=== PATIENT | female | born 1985 | race Caucasian/White ===

== ENCOUNTER → 2018-03-18 10:31 | Outpatient (CLI) | payer OTHER, MEDICAID, SELFPAY | PROVIDERS: Family Provider Family Medicine; PCP Family Medicine; Visit Provider Physician Assistant | DX: J02.9 Acute pharyngitis, unspecified (principal) | CPT/HCPCS: 87070 ==

== ENCOUNTER → 2019-06-24 09:39 | Outpatient (CLI) | payer OTHER, MEDICAID, SELFPAY ==
[2019-06-24 11:13] LABS: Appearance Urine UA CLEAR; Bilirubin Urine UA NEGATIVE (NEGATIVE); Color Urine UA YELLOW; Glucose Urine UA NEGATIVE (Negative); Ketones Urine UA NEGATIVE (NEGATIVE); Leukocyte Esterase Urine UA 3+ (NEGATIVE); Nitrite Urine UA NEGATIVE (Negative); Occult Blood Urine UA 1+ (Negative); Protein Urine UA NEGATIVE (Negative); Urobilinogen Urine UA 0.2 E.U./dL (0.2); pH Urine UA 6.5 (4.5-8.0)
[2019-06-24 11:32] LABS: Bacteria Urine Many (>30); RBC Urine 10-30/HPF (0-5/HPF); Squamous Epithelial Cell Urine 1-5 /HPF (0-5/HPF); WBC Urine 10-30/HPF (0-5/HPF)
[2019-06-24 11:33] LABS: Culture Indicated Urine Specimen Cultured
== END ==
PROVIDERS: Family Provider Family Medicine; PCP Family Medicine; Referring Provider Family Medicine; Visit Provider Family Medicine
DX: R30.0 Dysuria (principal)
CPT/HCPCS: 81001; 87077; 87086; 87186

== ENCOUNTER → 2019-08-07 11:20 | Outpatient (CLI) | payer OTHER, MEDICAID, SELFPAY ==
[2019-08-07 12:58] LABS: Appearance Urine UA CLEAR; Bilirubin Urine UA NEGATIVE (NEGATIVE); Color Urine UA YELLOW; Glucose Urine UA TRACE g/dL (Negative); Ketones Urine UA NEGATIVE (NEGATIVE); Leukocyte Esterase Urine UA 3+ (NEGATIVE); Nitrite Urine UA POSITIVE (Negative); Occult Blood Urine UA 1+ (Negative); Protein Urine UA TRACE (Negative); Specific Gravity Urine UA 1.015 (1.000-1.035); Urobilinogen Urine UA 0.2 E.U./dL (0.2)
[2019-08-07 13:03] LABS: pH Urine UA 6.5 (4.5-8.0)
[2019-08-07 13:20] LABS: Bacteria Urine Many (>30); RBC Urine 1-5/HPF (0-5/HPF); Squamous Epithelial Cell Urine 1-5 /HPF (0-5/HPF); WBC Urine 10-30/HPF (0-5/HPF)
[2019-08-07 13:21] LABS: Culture Indicated Urine Specimen Cultured
== END ==
PROVIDERS: Family Medicine; Family Provider Family Medicine; PCP Family Medicine; Referring Provider Family Medicine; Visit Provider Family Medicine
DX: R30.0 Dysuria (principal); R35.0 Frequency of micturition; R39.15 Urgency of urination
CPT/HCPCS: 81001; 87077; 87086; 87186

== ENCOUNTER → 2020-01-08 13:45 | Outpatient (CLI) | payer OTHER, MEDICAID, SELFPAY ==
[2020-01-10 00:59] LABS: COVID19 Sendout Not Detected (Not Detect)
== END ==
PROVIDERS: Family Provider Family Medicine; PCP Family Medicine; Visit Provider Physician Assistant
DX: Z11.59 Encounter for screening for other viral diseases (principal)
CPT/HCPCS: 87635

== ENCOUNTER 2020-02-10 07:58 | Emergency (ER) | payer OTHER, MEDICAID, SELFPAY ==
[2020-02-10 08:07] VITALS: BP 143/90; PULSE 87; RESP 16; TEMP 36.3; O2SAT 100; BMI 24.2
--- NOTE | 2020-02-10 08:24 | ED.NECK ---
HPI - Neck Pain/Injury General Chief Complaint: Neck Pain/Injury Stated Complaint: really bad neck and back pain with right arm pain Time Seen by Provider: 02/10/20 08:11 Source: patient Mode of arrival: Ambulatory Limitations: no limitations History of Present Illness HPI Narrative: The patient arrives with right neck pain. She is a hairstylist. She noticed slight discomfort during work history. She took ibuprofen yesterday. This morning, she woke with increased right neck pain. She has pain with motion to her head. She is achiness with motion using her right arm. She has no focal numbness or weakness. She denies chronic neck problems. She is right-hand dominant. She is uncertain about a potential injury at work. She denies recurrent neck problems. She denies recent illness. She denies possible . Related Data Home Medications Medication Instructions Recorded Confirmed cholecalciferol (vitamin D3) 2 tab PO QDAY #0 11/21/15 02/01/20 [Vitamin D3] Previous Rx's Medication Instructions Recorded levothyroxine 100 mcg tablet 100 mcg PO DAILY #90 tab 12/24/19 norgestimate-ethinyl estradiol See Rx Instructions .ROUTE 12/28/19 0.18 mg/0.215mg/0.25mg-35 .COMPLEX #84 tablet mcg(28)tablet nitrofurantoin macrocrystal 100 mg 100 mg PO BID #10 cap 02/01/20 capsule phenazopyridine 100 mg tablet 100 mg PO TID PRN #6 tab 02/01/20 diazepam [Valium] 5 mg PO TID PRN #10 tab 02/10/20 Allergies Allergy/AdvReac Type Severity Reaction Status Date / Time No Known Allergies Allergy Uncoded 02/10/20 08:10 Review of Systems Constitutional Constitutional: Denies weakness Comments: No recent illness. ENT Ears, Nose, Mouth, and Throat: Denies dizziness Comments: No ENT complaints. Cardiovascular Cardiovascular: Denies dyspnea Respiratory Respiratory: Denies dyspnea Musculoskeletal Musculoskeletal: Denies numbness Comments: Neck pain is noted HPI. No focal numbness or weakness down the extremities. Neurologic Neurologic: Denies dizziness, Denies numbness and Denies weakness Patient History Medical History (Updated 02/10/20 @ 09:12 by Irwin Harrison MD) Acquired hypothyroidism Hyperlipidemia Social History marital status: unmarried,living together household members: significant other Smoking Status: Current every day smoker alcohol intake: current (ON OCCASION) substance use type: does not use Smoking Status: Current every day smoker Substance Use Type: does not use Exam Initial Vital Signs Initial Vital Signs: Vital Signs Temperature 97.3 F L 02/10/20 08:07 Pulse Rate 87 02/10/20 08:07 Respiratory Rate 16 02/10/20 08:07 Blood Pressure 143/90 H 02/10/20 08:07 Pulse Oximetry 100 02/10/20 08:07 Const General: cooperative and well developed Nutritional Appearance: well nourished [facility] Head: normal to inspection, normocephalic and atraumatic Eyes Pupils: PERRL EOM: EOM intact bilaterally Neck Other: No palpable tenderness over the cervical spine. Right paraspinal tenderness extending into the right supraspinatus muscle. Increased pain with abduction or extension of the right arm. Skin General: no rashes or lesions noted Neuro General: patient alert, patient oriented x3 and other (Motor and sensory exam of the upper extremities is intact.) Speech: speech normal Extrem Other: Normal range of motion upper extremities without focal numbness or weakness. Course Course Course Narrative: The patient has been treated with Toradol 60 mg IM as well as Valium 5 mg p.o.. She showing improvement at time of discharge. She will be treated with ibuprofen and Valium, ice packs to the neck are also recommended. Orders Ordered: Discontinued Medications Diazepam (Diazepam 5 Mg Tablet) 5 mg PO NOW ONE Stop: 02/10/20 08:25 Last Admin: 02/10/20 08:31 Dose: 5 mg Documented by: RASHIDA Ketorolac Tromethamine (Ketorolac 60 Mg/2 Ml Vial) 60 mg IM NOW ONE Stop: 02/10/20 08:25 Last Admin: 02/10/20 08:31 Dose: 60 mg Documented by: RASHIDA Vital Signs Vital signs: Vital Signs - 8 hr 02/10/20 09:22 Pulse Rate 73 Respiratory Rate 18 Blood Pressure 132/84 Pulse Oximetry 98 Discharge Plan Departure Patient Disposition: Home Clinical Impression: Strain of muscle, fascia and tendon at neck level, initial encounter Instructions: Neck Sprain Activity Restrictions/Additional Instructions: Ibuprofen 600 mg every 6 hours as needed for pain. Valium every 6-8 hours as needed for spasm. Apply ice packs to the neck frequently for the next 2 days. After 2 days converted heat packs as needed for discomfort. Recheck with your doctor in 3 days if not improved. Return to the ER if problems escalate. Prescriptions: New diazepam [Valium] 5 mg tablet 5 mg PO TID PRN (Reason: muscle spasm) Qty: 10 RF: 0 No Action norgestimate-ethinyl estradiol 0.18/0.215/0.25 mg-35 mcg (28) tablet See Rx Instructions .ROUTE .COMPLEX Qty: 84 RF: 3 nitrofurantoin macrocrystal 100 mg capsule 100 mg PO BID Qty: 10 RF: 1 phenazopyridine [Pyridium] 100 mg tablet 100 mg PO TID PRN (Reason: pain) Qty: 6 RF: 0 cholecalciferol (vitamin D3) [Vitamin D3] 2,000 UNIT tablet 2 tab PO QDAY Qty: 0 RF: 0 levothyroxine 100 mcg tablet 100 mcg PO DAILY Qty: 90 RF: 3 Referrals: Julio Schultz MD [Primary Care Provider] -
--- NOTE | 2020-02-10 08:25 | PC.NURSE ---
Report right sided neck pain radiating into right arm. No injury or trauma.
[2020-02-10] MEDS: KETOROLAC 60 MG/2 ML VIAL IM (08:31)
[2020-02-10] MEDS: diazePAM 5 MG TABLET PO (08:31)
[2020-02-10 09:22] VITALS: BP 132/84; PULSE 73; RESP 18; O2SAT 98
== END 2020-02-10 09:22 | disposition home or self-care (01) ==
PROVIDERS: Emergency Provider Emergency Medicine; Family Provider Family Medicine; PCP Family Medicine
DX: S16.1XXA Strain of muscle, fascia and tendon at neck level, initial encounter (principal)
CPT/HCPCS: 96372; 99281; 99283; J1885

== ENCOUNTER → 2021-03-22 12:06 | Outpatient (CLI) | payer OTHER, MEDICAID, SELFPAY ==
[2021-03-22 13:35] LABS: COVID19 -Nasal RAPID Negative (Negative)
== END ==
PROVIDERS: Family Provider Family Medicine; PCP Family Medicine; Referring Provider Physician Assistant; Visit Provider Physician Assistant
DX: Z20.822 Contact with and (suspected) exposure to COVID-19; R51.9 Headache, unspecified
CPT/HCPCS: 87635

== ENCOUNTER 2021-03-25 12:24 | Emergency (ER) | payer OTHER, MEDICAID, SELFPAY ==
[2021-03-25 12:37] VITALS: BP 165/104; PULSE 99; RESP 14; TEMP 36.2; O2SAT 100; BMI 25.8
[2021-03-25 13:24] LABS: COVID19 -Nasal RAPID Negative (Negative)
[2021-03-25 14:09] VITALS: BP 153/95; PULSE 92; RESP 17; O2SAT 99
--- NOTE | 2021-03-25 14:42 | ED.HA ---
HPI - Headache <Glen Sutherland PA-C - Last Filed: 03/25/21 16:37> General Chief Complaint: Headache Stated Complaint: HEADACHE/NECK PAIN x10 DAYS Time Seen by Provider: 03/25/21 14:26 Mode of arrival: Ambulatory History of Present Illness HPI Narrative: Patient is a 35-year-old female presenting to the emergency department today for an evaluation of a headache that began approximately 10 days ago. Patient states that she has also experienced right-sided neck pain and right eye with mild blurry vision. Patient states that she has taken Tylenol, ibuprofen, Toradol, Excedrin, and an unspecified muscle relaxer to help alleviate her pain. She explains that she has been able to alleviate her symptoms intermittently, but she notes that the pain returns shortly after. She denies fever, chills, chest pain, cough, shortness of breath, nausea, vomiting, diarrhea, dysuria, hematuria, abdominal pain, sore throat, or any other concerning symptoms. No further concerns reports that this time. Related Data Home Medications Medication Instructions Recorded Confirmed cholecalciferol (vitamin D3) 50 2 tab PO QDAY #0 11/21/15 03/22/21 mcg (2,000 unit) tablet (Vitamin D3) Previous Rx's Medication Instructions Recorded phenazopyridine 100 mg tablet 100 mg PO TID PRN #6 tab 02/01/20 (Pyridium) levothyroxine 100 mcg tablet 100 mcg PO DAILY #90 tab 09/22/20 norgestimate-ethinyl estradiol See Rx Instructions .ROUTE 09/22/20 0.18 mg/0.215mg/0.25mg-35 .COMPLEX #84 tablet mcg(28)tablet cyclobenzaprine 10 mg tablet 10 mg PO BEDTIME PRN #5 tab 03/20/21 ketorolac 10 mg tablet 10 mg PO BEDTIME PRN 5 Days #5 tab 03/22/21 baclofen 10 mg tablet 10 mg PO BID #20 tab 03/25/21 Allergies Allergy/AdvReac Type Severity Reaction Status Date / Time No Known Drug Allergies Allergy Verified 03/25/21 12:41 Review of Systems <Glen Sutherland PA-C - Last Filed: 03/25/21 16:37> Constitutional Constitutional: Denies chills, Denies fatigue, Denies fever(s), Denies frequent falls, Reports headache(s), Denies lethargy and Denies weakness Eyes Eyes: Denies loss of vision ENT Ears, Nose, Mouth, and Throat: Denies change in voice, Denies dizziness, Reports headache(s), Reports neck pain, Denies sore throat and Denies throat swelling Cardiovascular Cardiovascular: Denies chest pain, Denies irregular heart rhythm, Denies lightheadedness, Denies palpitations, Denies dyspnea, Denies dyspnea on exertion and Denies orthopnea Respiratory Respiratory: Denies cough, Denies dyspnea, Denies dyspnea on exertion and Denies wheezing Gastrointestinal Gastrointestinal: Denies abdominal pain, Denies change in bowel habits, Denies diarrhea, Denies nausea and Denies vomiting Genitourinary Genitourinary: Denies hematuria, Denies flank pain, Denies urinary incontinence and Denies urinary urgency Musculoskeletal Musculoskeletal: Denies back pain, Denies muscle weakness, Reports neck pain, Denies numbness and Denies tingling Integumentary/Breasts Skin/Breast: Denies pruritus, Denies erythema, Denies rash and Denies wounds Neurologic Neurologic: Denies behavioral changes, Denies confusion, Denies dizziness, Denies frequent falls, Reports headache(s), Denies loss of vision, Denies numbness, Denies tingling and Denies weakness Psychiatric Psychiatric: Denies behavioral changes and Denies confusion Endocrine Endocrine: Denies fatigue and Denies palpitations Allergic/Immunologic Allergic/Immunologic: Denies throat swelling and Denies wheezing Patient History <Glen Sutherland PA-C - Last Filed: 03/25/21 16:37> Medical History Acquired hypothyroidism Hyperlipidemia Social History marital status: unmarried,living together household members: significant other Smoking Status: Current every day smoker alcohol intake: current substance use type: does not use Smoking Status: Current every day smoker alcohol intake frequency: 0-2 drinks per day Substance Use Type: does not use Exam <Glen Sutherland PA-C - Last Filed: 03/25/21 16:37> Narrative Exam Narrative: GENERAL: 35 year old patient appears stated age. Well-developed patient, in no acute distress. HEAD: Atraumatic. Normocephalic. EYES: Pupils equal round and reactive. Extraocular motions intact. No scleral icterus. No injection or drainage. ENT: Nose without bleeding, purulent drainage. Throat without erythema, tonsillar hypertrophy or exudate. Airway patent. NECK: Trachea midline. Non tender CARDIOVASCULAR: Regular rate and rhythm without murmurs, gallops, or rubs. RESPIRATORY: Clear to auscultation. Breath sounds equal bilaterally. No wheezes, rales, or rhonchi. GASTROINTESTINAL: Abdomen soft, non-tender, nondistended. EXTREMITIES: No edema or joint tenderness. MUSCULOSKELETAL: Mild tenderness to palpation noted over the right sternocleidomastoid muscle. BACK: Nontender without deformity or crepitance. No flank tenderness. NEURO: AOx3. SKIN: No rash or erythema of visible areas Initial Vital Signs Initial Vital Signs: Vital Signs Temperature 97.2 F L 03/25/21 12:37 Pulse Rate 99 H 03/25/21 12:37 Respiratory Rate 14 03/25/21 12:37 Blood Pressure 165/104 H 03/25/21 12:37 Pulse Oximetry 100 03/25/21 12:37 <Rober Seals DO - Last Filed: 03/25/21 17:08> Initial Vital Signs Initial Vital Signs: Vital Signs Temperature 97.2 F L 03/25/21 12:37 Pulse Rate 99 H 03/25/21 12:37 Respiratory Rate 14 03/25/21 12:37 Blood Pressure 165/104 H 03/25/21 12:37 Pulse Oximetry 100 03/25/21 12:37 Course <Glen Sutherland PA-C - Last Filed: 03/25/21 16:37> Course Course Narrative: Diazepam, baclofen, and intramuscular Toradol administered. Patient states that she is feeling much better after medications were administered. Orders Ordered: ED Orders 03/25/21 13:01 COVID19 -Nasal swab/Pre-Proc Stat Discontinued Medications Baclofen (Baclofen 10 Mg Tablet) 10 mg PO NOW ONE Stop: 03/25/21 14:42 Last Admin: 03/25/21 14:59 Dose: 10 mg Documented by: LAYTON Diazepam (Diazepam 5 Mg Tablet) 5 mg PO NOW ONE Stop: 03/25/21 14:42 Last Admin: 03/25/21 14:59 Dose: 5 mg Documented by: LAYTON Ketorolac Tromethamine (Ketorolac 30 Mg/Ml Vial) 15 mg IM NOW ONE Stop: 03/25/21 14:42 Last Admin: 03/25/21 14:59 Dose: 15 mg Documented by: LAYTON Vital Signs Vital signs: Vital Signs - 8 hr 03/25/21 12:37 03/25/21 14:09 03/25/21 14:53 Temperature 97.2 F L Pulse Rate 99 H 92 H 90 Respiratory Rate 14 17 18 Blood Pressure 165/104 H 153/95 H 137/88 Pulse Oximetry 100 99 100 <Rober Seals DO - Last Filed: 03/25/21 17:08> Orders Ordered: ED Orders 03/25/21 13:01 COVID19 -Nasal swab/Pre-Proc Stat Discontinued Medications Baclofen (Baclofen 10 Mg Tablet) 10 mg PO NOW ONE Stop: 03/25/21 14:42 Last Admin: 03/25/21 14:59 Dose: 10 mg Documented by: LAYTON Diazepam (Diazepam 5 Mg Tablet) 5 mg PO NOW ONE Stop: 03/25/21 14:42 Last Admin: 03/25/21 14:59 Dose: 5 mg Documented by: LAYTON Ketorolac Tromethamine (Ketorolac 30 Mg/Ml Vial) 15 mg IM NOW ONE Stop: 03/25/21 14:42 Last Admin: 03/25/21 14:59 Dose: 15 mg Documented by: LAYTON Vital Signs Vital signs: Vital Signs - 8 hr 03/25/21 12:37 03/25/21 14:09 03/25/21 14:53 Temperature 97.2 F L Pulse Rate 99 H 92 H 90 Respiratory Rate 14 17 18 Blood Pressure 165/104 H 153/95 H 137/88 Pulse Oximetry 100 99 100 MDM - Headache <Glen Sutherland PA-C - Last Filed: 03/25/21 16:37> Lab Data Labs: Lab Results 03/25/21 Range/Units 13:01 SARS-CoV-2 (PCR) Negative (Negative) MDM Narrative Medical decision making narrative: To consider migraine versus tension headache versus cluster headache versus meningitis versus viral upper respiratory infection versus COVID-19. Overall physical examination and history are reassuring. Discussed with patient the likelihood that the pain she is experiencing is associated with a muscle strain. I recommended the patient discontinue her muscle relaxer that was originally prescribed to her and to begin taking back within which I am prescribing to her today. Patient expresses understanding and agrees to plan. Additionally, I urged the patient to follow back up with her primary care provider within the next 2-3 days if her pain returns. Strict return precautions were discussed with the patient prior to discharge. At this time patient is comfortable being discharged home and is stable for discharge. <Rober Seals, DO - Last Filed: 03/25/21 17:08> Lab Data Labs: Lab Results 03/25/21 Range/Units 13:01 SARS-CoV-2 (PCR) Negative (Negative) Discharge Plan Departure Patient Disposition: Home Clinical Impression: Headache, Neck pain Instructions: DI for Headache Activity Restrictions/Additional Instructions: *You have been diagnosed with headache, neck pain *What to do: *Please continue to take your regular medications as directed. [X] New medication prescriptions sent to your pharmacy: [facility] - Baclofen [ ] New medication written as a paper prescription [ ] No new medications given *Please follow up with your primary care provider in 2-3 days, call for an appointment. Let them know you were seen in the Emergency Department and that we ask that you be seen in follow up. We will electronically transmit a record of today's note if your PCP is in our system *If you do not have a primary care provider please contact the [facility] Resource line at [phone]. They will ask some questions about your medical history and help get you set up with a doctor in the community. *Return to Emergency Department if you should have any new, worsening or concerning symptoms, such as fever greater than 101 F, shaking chills, worsening pain, persistent vomiting or other bothersome symptoms Prescriptions: New baclofen 10 mg tablet 10 mg PO BID Qty: 20 0RF No Action ketorolac 10 mg tablet 10 mg PO BEDTIME PRN (Reason: pain) 5 Days Qty: 5 1RF phenazopyridine [Pyridium] 100 mg tablet 100 mg PO TID PRN (Reason: pain) Qty: 6 0RF cholecalciferol (vitamin D3) [Vitamin D3] 2,000 UNIT tablet 2 tab PO QDAY Qty: 0 0RF levothyroxine 100 mcg tablet 100 mcg PO DAILY Qty: 90 3RF norgestimate-ethinyl estradiol 0.18/0.215/0.25 mg-35 mcg (28) tablet See Rx Instructions .ROUTE .COMPLEX Qty: 84 3RF Dose Instruction: take 1 tablet by mouth once daily Rx Instructions: take 1 tablet by mouth once daily cyclobenzaprine 10 mg tablet 10 mg PO BEDTIME PRN (Reason: muscle spasm) Qty: 5 0RF Referrals: Julio Schultz MD [Primary Care Provider] - <Rober Seals, - Last Filed: 03/25/21 17:08> Cosign ED Attending Cosignature Attestation: Dr Seals Co-Sign Statement: I was available for consultation during this patient's emergency department visit. This chart is signed by myself for administrative purposes only. I did not have direct contact with this patient during this visit. They were seen independently by the APC.
[2021-03-25 14:53] VITALS: BP 137/88; PULSE 90; RESP 18; O2SAT 100
[2021-03-25] MEDS: diazePAM 5 MG TABLET PO (14:59)
[2021-03-25] MEDS: KETOROLAC 30 MG/ML VIAL 15 MG IM (14:59)
[2021-03-25] MEDS: BACLOFEN 10 MG TABLET PO (14:59)
== END 2021-03-25 15:55 | disposition home or self-care (01) ==
PROVIDERS: Emergency Medicine; Emergency Provider Physician Assistant; Family Provider Family Medicine; PCP Family Medicine
DX: R51.9 Headache, unspecified (principal); M54.2 Cervicalgia; Z20.822 Contact with and (suspected) exposure to COVID-19
CPT/HCPCS: 87635; 96372; 99283; C9803; J1885

== ENCOUNTER → 2021-04-18 09:08 | Outpatient (CLI) | payer OTHER, MEDICAID, SELFPAY ==
--- NOTE | 2021-04-18 09:10 | DI.CT.S_ITS ---
PROCEDURE: CT head without contrast, CT angiogram head with contrast, CT venogram head with contrast INDICATIONS: 35-year-old female with headache on control TECHNIQUE: Precontrast 4.5 mm thick angled axial sections acquired from the foramen magnum to the vertex. After the administration of intravenous contrast, 1 mm thick sections acquired through the [place]. Postcontrast 4.5 mm thick sections then re-acquired from the foramen magnum to the vertex. 10 mm thick daybqoc-sqhhyclvw-[id number] (MIP) reformats were acquired of the central intracranial vasculature. For radiation dose reduction, the following was used: automated exposure control, adjustment of mA and/or kV according to patient size. COMPARISON: None. FINDINGS: Image quality: Excellent. Anterior circulation: Intracranial internal carotid arteries are normal in size and flow. The flow within the paired anterior cerebral arteries is normal and symmetric. The flow within the middle cerebral arteries is normal and symmetric. The anterior communicating artery is seen. No aneurysms are seen. Posterior circulation: The left vertebral artery is unremarkable and dominant. The distal right [place] V3 vertebral artery segment is partially included on the exam, not well seen and may be stenotic or occluded. The intradural V4 vertebral artery is patent, and could be related to retrograde flow from the basilar artery. Flow within the posterior cerebral arteries is normal and symmetric. No aneurysms are seen. Dural sinuses: Intracranial dural sinuses are patent and unremarkable. CSF spaces: Ventricles are normal in size and shape. Basal cisterns are patent. No extra-axial fluid collections. Brain: No midline shift. No intracranial bleeds or masses. Chacko-white matter interface appears intact. Skull and face: Calvarium and facial bones appear intact, without suspicious lesions. Sinuses: Visualized sinuses and mastoids are clear. IMPRESSION: 1. Distal right vertebral artery V3 segment is not well seen, partially included on the exam, and may be stenotic or occluded. Consider follow-up CT angiogram neck for further evaluation. 2. Otherwise unremarkable CT angiogram and CT venogram of the brain 3. Unremarkable CT of the brain without intracranial hemorrhage or mass effect. Approved by: Arsenio Henson M.D. on 04/18/2021 at 11:41
== END ==
PROVIDERS: Family Provider Family Medicine; PCP Family Medicine; Referring Provider Family Medicine; Visit Provider Family Medicine
DX: R51.9 Headache, unspecified (principal); M54.81 Occipital neuralgia; Z79.3 Long term (current) use of hormonal contraceptives
CPT/HCPCS: 70496; Q9967

== ENCOUNTER → 2021-06-22 14:17 | Outpatient (CLI) | payer OTHER, MEDICAID, SELFPAY ==
[2021-06-22 16:13] LABS: HCG Quantitative /Beta subunit < 2.4 mIU/mL
[2021-06-22 16:50] LABS: Thyroid Stimulating Hormone 2.36 uIU/mL (0.47-4.68)
== END ==
PROVIDERS: Family Provider Family Medicine; PCP Family Medicine; Referring Provider Physician Assistant; Visit Provider Physician Assistant
DX: E03.9 Hypothyroidism, unspecified (principal); N93.9 Abnormal uterine and vaginal bleeding, unspecified; R10.2 Pelvic and perineal pain
CPT/HCPCS: 36415; 84443; 84702

== ENCOUNTER → 2021-07-19 07:48 | Outpatient (CLI) | payer OTHER, MEDICAID, SELFPAY ==
--- NOTE | 2021-07-19 07:49 | DI.US.S_ITS ---
PROCEDURE: US PELVIC COMPLETE INDICATIONS: CRAMPING, SPOTTING BETWEEN CYCLES TECHNIQUE: Real-time scanning was performed of the pelvic organs, with image documentation. Additional endovaginal scanning was necessary due to incomplete visualization of the adnexal and endometrial structures by transabdominal scanning. COMPARISON: None. FINDINGS: Uterus: Uterus is anteverted and normal in size at 9.2 x 4.8 x 6 cm. The myometrium is predominantly homogeneous. The endometrium measures 3.5 mm combined thickness. Ovaries: The right ovary measures 3.6 x 2.1 x 1.8 cm. The left ovary measures 4 x 2 x 2.8 cm. The ovaries have a normal sonographic appearance. No adnexal masses are seen. Other: No pathologic free abdominal or pelvic fluid. IMPRESSION: No significant abnormality. We strive to produce accurate, complete, and clear reports of imaging services. To assist us in improving patient care, this report was composed using standard report templates and voice recognition software. Therefore, it may contain abnormal punctuation, insertions and/or omissions. Occasional wrong-word or sound-alike substitutions may occur. Though we review the report and make efforts to correct it, we do recommend that the report be read carefully in proper context to recognize any text inaccuracies. Dictated by: Jamison Gifford M.D. on 07/19/2021 at 11:10 Approved by: Jamison Gifford M.D. on 07/19/2021 at 11:12
== END ==
PROVIDERS: Family Provider Family Medicine; PCP Family Medicine; Referring Provider Physician Assistant; Visit Provider Physician Assistant
DX: N93.9 Abnormal uterine and vaginal bleeding, unspecified (principal); R10.2 Pelvic and perineal pain; E03.9 Hypothyroidism, unspecified
CPT/HCPCS: 76830; 76856

== ENCOUNTER → 2021-10-18 11:34 | Outpatient (CLI) | payer OTHER, MEDICAID, SELFPAY ==
[2021-10-18 13:48] LABS: Testosterone 29.3 ng/dL (5.71-77.0)
[2021-10-18 20:54] LABS: Follicle Stimulating Hormone 6.25 mIU/mL; Luteinizing Hormone 9.35 mIU/mL; Progesterone, Total 0.72 ng/mL
[2021-10-20 10:08] LABS: Free T3, Triiodothyronine Free 2.92 pg/mL (2.77-5.27); Free T4, Direct Thyroxine 1.32 ng/dL (0.78-2.19)
[2021-10-20 19:57] LABS: Estrogen 76 pg/mL (.)
== END ==
PROVIDERS: Family Provider Family Medicine; PCP Family Medicine; Referring Provider Physician Assistant; Visit Provider Physician Assistant
DX: N93.9 Abnormal uterine and vaginal bleeding, unspecified (principal); R63.5 Abnormal weight gain; E78.5 Hyperlipidemia, unspecified
CPT/HCPCS: 36415; 82672; 83001; 83002; 84144; 84403; 84439; 84481

== ENCOUNTER 2022-01-23 06:29 | Emergency (ER) | payer OTHER, MEDICAID, SELFPAY ==
[2022-01-23 06:41] VITALS: BP 121/77; PULSE 88; RESP 18; TEMP 36.1; O2SAT 98; BMI 27.4
--- NOTE | 2022-01-23 07:23 | ED.URI ---
HPI - URI/Sore Throat General Chief Complaint: Upper Respiratory Symptoms Stated Complaint: fever, cough x5 days Time Seen by Provider: 01/23/22 07:12 Source: patient Mode of arrival: Ambulatory Limitations: no limitations History of Present Illness HPI Narrative: This is a 36-year-old female with history of hypothyroidism on levothyroxine, former tobacco use with complaint of fevers, myalgias, cough for the past 5 days. Patient denies chest pain or shortness of breath. No nausea or vomiting. She had diarrhea after taking Mucinex but not persistently or frequently. Patient not had any urinary symptoms. Patient as well as to her children have had symptoms over the past 5 days. She denies any other medical issues. Denies any major surgeries. Former tobacco user, occasional alcohol, no illicit. Related Data Previous Rx's Medication Instructions Recorded Multivitman 1 ea PO DAILY #100 ea 06/22/21 norethindrone 0.5 mg-ethinyl 1 tab PO DAILY #84 tabs 07/19/21 estradiol 35 mcg tablet (Necon) levothyroxine 100 mcg tablet 100 mcg PO DAILY #90 tabs 10/20/21 Allergies Allergy/AdvReac Type Severity Reaction Status Date / Time No Known Drug Allergies Allergy Verified 01/23/22 06:41 Review of Systems Review of Systems ROS Unobtainable: All systems reviewed & are unremarkable except as noted in HPI and below Patient History Medical History Abnormal vaginal bleeding Acquired hypothyroidism Hyperlipidemia Pelvic pain Social History marital status: unmarried,living together household members: significant other Smoking Status: Former smoker alcohol intake: current substance use type: does not use Smoking Status: Former smoker alcohol intake frequency: 0-2 drinks per day Substance Use Type: does not use Exam Narrative Exam Narrative: GEN: well nourished, well appearing female, alert and oriented x 3, patient appears to be in mild distress. HEENT: Atraumatic, pupils are equal round reactive to light, extraocular movements are intact, nares show mild clear rhinorrhea, TMs are clear with no fluid, there is no conjunctival pallor. Throat is clear without any exudates, erythema, tonsillar enlargement or uvular deviation HEART: Regular rate and rhythm without murmur, clicks, rubs. LUNGS:Lungs clear to auscultation, no wheezes, rales, crackles, chest moves symmetrically ABD:bowel sounds normal, soft, non-tender, no guarding, rebound, rigidity, no masses noted, no hepatosplenomegaly MSCL: Non-tender, no muscle atrophy, muscles strength 5/5 upper and lower extremities, full range of motion, normal gait NEURO:CN 2-12 intact, sensation normal SKIN: No rash, erythema or other skin changes noted Initial Vital Signs Initial Vital Signs: Vital Signs Temperature 97.0 F L 01/23/22 06:41 Pulse Rate 88 01/23/22 06:41 Respiratory Rate 18 01/23/22 06:41 Blood Pressure 121/77 01/23/22 06:41 Pulse Oximetry 98 01/23/22 06:41 Oxygen Delivery Method 01/23/22 06:41 Course Orders Ordered: ED Orders 01/23/22 06:50 Covid-19 + FLU A/B + RSV - PCR Stat Vital Signs Vital signs: Vital Signs - 8 hr 01/23/22 06:41 Temperature 97.0 F L Pulse Rate 88 Respiratory Rate 18 Blood Pressure 121/77 Pulse Oximetry 98 Oxygen Delivery Method Room Air MDM - URI/Sore Throat Lab Data Labs: Lab Results 01/23/22 Range/Units 06:50 SARS-CoV-2 (PCR) Negative (Negative) Influenza A (RT-PCR) Flu a positive H (NEGATIVE) Influenza B (RT-PCR) Flu b negative (NEGATIVE) RSV (PCR) Negative (Negative) MDM Narrative Medical decision making narrative: Well-appearing female with symptoms consistent with an testing positive for influenza A. Discharge Plan Departure Patient Disposition: Home Clinical Impression: Influenza A Instructions: DI for Influenza -- Adult Activity Restrictions/Additional Instructions: You have been diagnosed with influenza A Symptoms can last 10 days.? Recommend Tylenol and/or ibuprofen for fevers and body aches. You can use [id number] cough medication as needed Please return for passing out, new chest pain, shortness of breath, persistent vomiting, black or bloody stools or other new or concerning symptoms. Prescriptions: No Action Multivitman 1 ea PO DAILY Qty: 100 0RF Necon 0.5/35 (28) 0.5-35 mg-mcg tablet 1 tab PO DAILY Qty: 84 3RF Rx Instructions: Take one tablet once daily as directed levothyroxine 100 mcg tablet 100 mcg PO DAILY Qty: 90 3RF Referrals: Julio Schultz MD [Primary Care Provider] -
[2022-01-23 07:34] LABS: Influenza A - CEPHEID Flu A POSITIVE (NEGATIVE); Influenza B - CEPHEID Flu B NEGATIVE (NEGATIVE); Respiratory Syncytial Virus Negative (Negative)
[2022-01-23 07:35] LABS: COVID-19 CEPHEID 4-PLEX PCR Negative (Negative)
[2022-01-23 08:05] VITALS: BP 143/88; PULSE 91; O2SAT 96
== END 2022-01-23 08:08 | disposition home or self-care (01) ==
PROVIDERS: Emergency Medicine; Emergency Provider Emergency Medicine; Family Provider Family Medicine; PCP Family Medicine
DX: J10.1 Influenza due to other identified influenza virus with other respiratory manifestations (principal); Z20.822 Contact with and (suspected) exposure to COVID-19
CPT/HCPCS: 0241U; 99282

== ENCOUNTER → 2024-07-23 14:08 | Outpatient (CLI) | payer OTHER, SELFPAY ==
[2024-07-23 16:30] LABS: HCG Quantitative /Beta subunit < 2.39 mIU/mL
== END ==
PROVIDERS: Physician Assistant; Family Provider Family Medicine; PCP Family Medicine; Referring Provider Family Medicine; Visit Provider Family Medicine
DX: N91.2 Amenorrhea, unspecified (principal)
CPT/HCPCS: 36415; 84702

== ENCOUNTER → 2025-02-25 07:07 | Outpatient (CLI) | payer OTHER, SELFPAY ==
--- NOTE | 2025-02-25 07:08 | DI.US.S_ITS ---
PROCEDURE: US PELVIC COMPLETE INDICATIONS: DATING AND VIABILITY; UNCLEAR DATES TECHNIQUE: Real-time scanning was performed of the pelvic organs, with image documentation. Additional endovaginal scanning was necessary due to incomplete visualization of the adnexal and endometrial structures by transabdominal scanning. COMPARISON: None. FINDINGS: Uterus is anteverted and measures 8.8 x 6.2 x 5.9 cm. Endometrial thickness is 9 mm. 1.7 cm uterine fibroid. Cervix unremarkable. Right ovary measures 3.8 x 2.3 x 1.7 cm with volume 7.8 mL. Left ovary measures 5.3 x 2.5 x 2.2 cm with volume 15.1 mL. Right ovary is unremarkable. Left adnexa complex cyst which is abutting or within the left ovary measuring up to 2.2 cm. Adjacent free fluid in the left adnexa. IMPRESSION: Complex left adnexal cyst which is most likely corpus luteal cyst. Cannot exclude fimbria/ovarian left ectopic. No intrauterine . Left adnexal free fluid. We strive to produce accurate, complete, and clear reports of imaging services. To assist us in improving patient care, this report was composed using standard report templates and voice recognition software. Therefore, it may contain abnormal punctuation, insertions and/or omissions. Occasional wrong-word or sound-alike substitutions may occur. Though we review the report and make efforts to correct it, we do recommend that the report be read carefully in proper context to recognize any text inaccuracies. Dictated by: Elvin Appiah M.D. on 02/25/2025 at 8:33 Approved by: Elvin Appiah M.D. on 02/25/2025 at 8:43
== END ==
PROVIDERS: Obstetrics & Gynecology; PCP Family Medicine; Referring Provider Family Medicine; Visit Provider Student in an Organized Health Care Education/Training Program
DX: Z34.90 Encounter for supervision of normal pregnancy, unspecified, unspecified trimester (principal); D25.9 Leiomyoma of uterus, unspecified; N94.89 Other specified conditions associated with female genital organs and menstrual cycle
CPT/HCPCS: 76817; 76830; 76856; 84702

== ENCOUNTER → 2025-02-27 08:10 | Outpatient (CLI) | payer OTHER, SELFPAY | PROVIDERS: PCP Family Medicine; Referring Provider Student in an Organized Health Care Education/Training Program; Visit Provider Student in an Organized Health Care Education/Training Program | DX: Z34.90 Encounter for supervision of normal pregnancy, unspecified, unspecified trimester (principal) | CPT/HCPCS: 36415; 84702 ==